=== PATIENT | female | born 1960 | race Two or more races ===

== ENCOUNTER 2023-12-19 00:31 | Inpatient (IN) | payer BC, OTHER ==
[~2023-12-19] VITALS: Ht 170.2 cm; Wt 79.4 kg
--- NOTE | 2023-12-19 00:41 | NUR ---
LUIS 80 FROM HOME FOR LLE PAIN S/P MISSED THREE STEPS REC'D 100MCG OF [place] IV KNIT GOODS PRESS HAND. Transferred to bed
--- NOTE | 2023-12-19 01:25 | NUR ---
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
[2023-12-19 01:33] LABS: BASOPHILS % (AUTO) 0.5 % (0.0-2.0); EOSINOPHILS # (AUTO) 0.1 K/uL (0.0-0.7); HEMATOCRIT 43 % (33-45); HEMOGLOBIN 14.3 g/dL (11.5-14.8); LYMPHOCYTES # (AUTO) 2.1 K/uL (0.8-4.8); LYMPHOCYTES % (AUTO) 24.5 % (20.0-44.0); MEAN CORPUSCULAR HEMOGLOBIN 31 PG (26.0-33.0); MEAN CORPUSCULAR HGB CONC 33 g/dl (31.0-36.0); MEAN CORPUSCULAR VOLUME 94 fL (82-100); MONOCYTES # (AUTO) 0.9 K/uL (0.1-1.30); MONOCYTES % (AUTO) 10.1 % (2.0-12.0); NEUTROPHILS # (AUTO) 5.6 K/uL (1.8-8.9); NEUTROPHILS % (AUTO) 63.9 % (43.0-81.0); PLATELET COUNT (AUTO) 289 K/uL (150-450); RED BLOOD CELL COUNT(AUTO) 4.63 MIL/uL (4.0-5.2); RED CELL DISTRIBUTION WIDTH 13.9 % (11.5-15.0); WHITE BLOOD COUNT (AUTO) 8.7 K/uL (4.3-11.0)
[2023-12-19 01:43] LABS: CALCIUM, SERUM 9.7 mg/dL (8.5-10.1); CREATININE 0.9 mg/dL (0.6-1.3); POTASSIUM 3.6 mmol/L (3.5-5.1)
[2023-12-19] MEDS ORDERED: ONDANSETRON HCL/PF 4 MG/2 ML VIAL ONE (01:43)
[2023-12-19] MEDS ORDERED: MORPHINE SULFATE INJ 4 MG/ML DISP.SYRIN ONE (01:43)
[2023-12-19 01:45] LABS: INR 0.98 (0.91-1.10); PARTIAL THROMBOPLASTIN TIME 23.4 SEC (24.3-34.3); PROTHROMBIN TIME 10.4 SECS (9.2-11.1)
[2023-12-19] MEDS: MORPHINE SULFATE INJ 2 MG/ML DISP.SYRIN IV ONE (01:49)
[2023-12-19] MEDS: ONDANSETRON HCL/PF 4 MG/2 ML VIAL IVP ONE (01:49)
[2023-12-19] MEDS: IV NS 0.9% 1,000 ML BAG IV ONE (01:51)
[2023-12-19] MEDS ORDERED: HYDROMORPHONE 1 MG/1 ML DISP.SYRIN ONE (02:28)
[2023-12-19] MEDS: HYDROMORPHONE 1 MG/1 ML DISP.SYRIN IV ONE (02:39)
--- NOTE | 2023-12-19 02:48 | NUR ---
Report given to YANIV ROCA
[2023-12-19] MEDS ORDERED: ONDANSETRON HCL/PF 4 MG/2 ML VIAL IVP PRN (03:00)
[2023-12-19 03:35] VITALS: BP 111/67; TEMP 98.6; O2SAT 96
--- NOTE | 2023-12-19 03:47 | NUR ---
Transported to [facility] via [facility]
[2023-12-19] MEDS: IV LR 1000 ML 1,000 ML IV SCH (03:50)
--- NOTE | 2023-12-19 03:50 | NUR ---
MS OVERHEAD CRANE TRUCK LOADER NOTES REPORT RECEIVED FROM CHANELLE MANDEL. PATIENT WAS TRANSFERRED FROM ER VIA GURNEY WITH NO SIGNS OF DISTRESS. PATIENT IS A/O X 4, SON AND FRIEND AT BEDSIDE. ON ROOM AIR, BREATHING EVEN AND UNLABORED SATURATING @ 96%. IV ACCESS LEFT ANTECUBITAL #18G ON SALINE LOCK, INTACT AND PATENT. V/S TAKEN AND RECORDED. SKIN ASSESSMENT DONE, INTACT SKIN, LEFT LOWER EXTREMITY WITH IMMOBILIZER. ALL BELONGINGS CHECKED AND SIGNED BY RYLEE YOUSSEF. WILL CARRY OUT ACTIVE MD ORDERS. PLAN OF CARE ONGOING.
--- NOTE | 2023-12-19 03:55 | NUR ---
RN NOTES- ZAID (SON) [phone]
--- NOTE | 2023-12-19 06:10 | NUR ---
MS RN CLOSING NOTES PATIENT AWAKE IN BED. A/O X 4. STABLE ON ROOM AIR. IV ACCESS LEFT ANTECUBITAL #18G WITH IV FLUID RUNNING LR @ 100 ML/HR, INFUSING WELL. PATIENT ON NPO. PATIENT'S LEFT LOWER EXTREMITY COVERED WITH GULSHAN BANDAGE WITH IMMOBILIZER. SAFETY MEASURES MAINTAINED DURING SHIFT. WILL ENDORSE TO THE NEXT NURSE ON DUTY FOR CONTINUITY OF CARE.
[2023-12-19 07:30] VITALS: BP 126/77; TEMP 97.3; O2SAT 99
[2023-12-19 07:37] LABS: PHOSPHORUS 4.3 mg/dL (2.5-4.9)
--- NOTE | 2023-12-19 07:45 | NUR ---
MS RN OPENING NOTES PATIENT AWAKE IN BED TALKING WITH DR HELTON AT BEDSIDE, A/O X 4. STABLE ON ROOM AIR. IV ACCESS LEFT ANTECUBITAL #18G WITH IV FLUID RUNNING LR @ 100 ML/HR, INFUSING WELL. MAINTAINED ON NPO AT THIS TIME. PATIENT'S LEFT LOWER EXTREMITY COVERED WITH GULSHAN BANDAGE WITH IMMOBILIZER. PAIN IS MANAGEMENT AT THIS TIME. ENCOURAGED VERBALIZATION OF NEEDS. ALL SAFETY MEASURES: BED IN THE LOWEST AND LOCKED POSITION, SIDE RAILS UP X2, CALL LIGHT AND TRAY TABLE WITHIN EASY REACH. PLAN OF CARE ONGOING.
[2023-12-19 08:17] LABS: THYROID STIMULATING HORMONE 1.19 uIU/mL (0.358-3.74)
[2023-12-19] MEDS ORDERED: PRED5TAB PO (08:35)
[2023-12-19] MEDS ORDERED: DENO60DI SQ (08:35)
[2023-12-19] MEDS ORDERED: PRED2.5T PO (08:35)
[2023-12-19] MEDS ORDERED: PITA4TAB PO (08:35)
[2023-12-19] MEDS ORDERED: FLUD0.1T PO (08:35)
[2023-12-19] MEDS ORDERED: LEVO50TA8 PO (08:35)
[2023-12-19] MEDS ORDERED: UBIQ200C PO (08:35)
[2023-12-19] MEDS ORDERED: CHOL100043 PO (08:35)
[2023-12-19] MEDS ORDERED: VALA100026 PO (08:35)
[2023-12-19] MEDS ORDERED: FAMO40TA7 PO (08:35)
[2023-12-19] MEDS: HYDROMORPHONE 1 MG/1 ML DISP.SYRIN IV PRN (08:38)
[2023-12-19] MEDS: PANTOPRAZOLE 40 MG VIAL IV SCH (08:39)
--- NOTE | 2023-12-19 08:55 | NUR ---
RN NOTES RN MIAN ADMINISTERED DILAUDID 0.5 MG IV. WITNESSED WASTING 0.5 MG.
--- NOTE | 2023-12-19 08:55 | NUR ---
CHANELLE NOTES - PATIENT COMPLAINING OF 11/30 LL EXTREMITY PAIN RADIATING TO THE ANKLE. GIVEN DILAUDID 0.5 MG IV THRU IV, WASTING 0.5 MG WITNESSED BY CHANELLE GARDUNO. Addendum: 12/19/23 at 0904 by MARIAN HIDALGO RN GIVEN AT 0838
--- NOTE | 2023-12-19 09:10 | NUR ---
RN NOTES - PATIENT REPORTS 7/10 PAIN, NOT THAT EFFECTIVE BUT PATIENT IS TOLERATING.
[2023-12-19 09:28] LABS: THYROID STIMULATING HORMONE 1.17 uIU/mL (0.358-3.74)
[2023-12-19] MEDS: FLUDROCORTISONE 0.1 MG TABLET PO SCH (09:45)
[2023-12-19] MEDS: LEVOTHYROXINE SODIUM 50 MCG TABLET PO SCH (09:45)
[2023-12-19] MEDS: HYDROCORTISONE SOD SUCCINATE 100 MG/2 ML VIAL IV SCH (09:45)
[2023-12-19] MEDS: VALACYCLOVIR HCL 500 MG TABLET PO SCH (09:46)
[2023-12-19] MEDS: ATORVASTATIN 10 MG TABLET PO SCH (09:46)
--- NOTE | 2023-12-19 09:47 | NUR ---
RN NOTES - RECEIVED ORDER FROM DR HELTON C/O CHARGE NURSE PHILLIP TO GIVE ALL MORNING MEDICATIONS INCLUDING PO.
--- NOTE | 2023-12-19 14:49 | NUR ---
RN NOTE WITNESSED WASTING DILAUDID 0.5 MG OUT OF 1 MG BY CHANELLE PAPPAS.
--- NOTE | 2023-12-19 14:57 | NUR ---
RN NOTES - PATIENT COMPLAINING OF 9/10 LL EXTREMITY PAIN. GIVEN DILAUDID 0.5 MG IV THRU IV, WASTING 0.5 MG WITNESSED BY CHANELLE HERNANDEZ.
--- NOTE | 2023-12-19 15:46 | NUR ---
RN NOTES - PATIENT WITH SON ZAID AT BEDSIDE, TALKING TO DR WATERS OVER THE PHONE.
[2023-12-19 16:00] VITALS: BP 122/65; TEMP 98.6; O2SAT 93
[2023-12-19] MEDS ORDERED: Medication Not On Formulary EA (Famotidine 40 MG) PO SCH (17:00)
[2023-12-19] MEDS ORDERED: BUPIVACAINE 0.5 % PF 150 MG/30 ML VIAL ONE (17:09)
[2023-12-19] MEDS ORDERED: VANCOMYCIN 1 GM VIAL ONE (17:09)
--- NOTE | 2023-12-19 17:33 | NUR ---
RN NOTES - PATIENT IS TAKEN TO OR VIA HER BED.
[2023-12-19] MEDS ORDERED: methylPREDNISolone SOD SUCC 125 MG/2ML VIAL ONE (17:37)
[2023-12-19] MEDS ORDERED: FENTANYL PF 100MCG/2ML AMPUL ONE (17:37)
--- NOTE | 2023-12-19 19:38 | NUR ---
MS RN CLOSING NOTES PATIENT REMAINS IN SURGERY. ENDORSED TO NIGHT RN FOR RUCHI.
--- NOTE | 2023-12-19 19:51 | NUR ---
MS RN NOTES REPORT RECEIVED FROM CHANELLE PAPPAS. PATIENT IS STILL IN THE OR FOR SURGERY.
[2023-12-19 20:36] VITALS: BP 114/69; TEMP 98.4; O2SAT 98
[2023-12-19 21:00] VITALS: BP 114/69; TEMP 98.4; O2SAT 98
--- NOTE | 2023-12-19 21:00 | NUR ---
RN NOTE RECEIVED PATIENT FROM SURGERY S/P LEFT TIBIA IM RODDING. PT IS AWAKE. ON ROOM AIR, BREATHING EVENLY AND UNLABORED. IV ACCESS ON LAC G#18, INTACT AND PATENT. WITH WHITESIDE CATHETER DRAINING VIA GRAVITY. VS FOLLOWS: BP 114/69, HR 77, RR 12, SPO2 98% TEMP 98.4. SAFETY MEASURES IN PLACE, WILL CONTINUE TO MONITOR
[2023-12-19] MEDS: IV D5/0.45 NACL W/20 MEQ KCL 1L IV SCH (21:09)
[2023-12-20] MEDS: ANCEF 1 GM/50 ML D5W IV SCH (01:12)
--- NOTE | 2023-12-20 06:43 | NUR ---
MS RN CLOSING NOTE PATIENT ASLEEP IN BED. EASILY AROUSED WITH VERBAL STIMULI. A/OX4. ON 2L O2 VIA NC, TOLERATING WELL. BREATHING EVENLY AND UNLABORED. ON ROOM AIR, BREATHING EVENLY AND UNLABORED. IV ACCESS ON LAC G#18, INTACT, PATENT WITH RUNNING D51/2 NS +KCL 20 mEq @ 75 ML/HR. WITH LEFT LEG DRESSING C/DI. WITH WHITESIDE CATHETER DRAINING VIA GRAVITY. SAFETY MEASURES MAINTAINED. WILL ENDORSE TO AM SHIFT NURSE.
[2023-12-20 07:06] LABS: HEMATOCRIT 36 % (33-45); HEMOGLOBIN 11.5 g/dL (11.5-14.8); LYMPHOCYTES # (AUTO) 0.9 K/uL (0.8-4.8); LYMPHOCYTES % (AUTO) 7.9 % (20.0-44.0); MEAN CORPUSCULAR HEMOGLOBIN 30 PG (26.0-33.0); MEAN CORPUSCULAR HGB CONC 32 g/dl (31.0-36.0); MEAN CORPUSCULAR VOLUME 93 fL (82-100); MONOCYTES # (AUTO) 0.7 K/uL (0.1-1.30); MONOCYTES % (AUTO) 6.1 % (2.0-12.0); NEUTROPHILS # (AUTO) 9.7 K/uL (1.8-8.9); PLATELET COUNT (AUTO) 260 K/uL (150-450); RED BLOOD CELL COUNT(AUTO) 3.84 MIL/uL (4.0-5.2); RED CELL DISTRIBUTION WIDTH 13.8 % (11.5-15.0); WHITE BLOOD COUNT (AUTO) 11.3 K/uL (4.3-11.0)
[2023-12-20 07:42] LABS: CALCIUM, SERUM 7.5 mg/dL (8.5-10.1); CREATININE 0.6 mg/dL (0.6-1.3)
--- NOTE | 2023-12-20 07:45 | NUR ---
MS RN OPENING NOTE RECEIVED PATIENT SLEEPING IN BED, EASILY AWAKEN WITH AUDITORY STIMULI. A/OX4. ON 2L O2 VIA NC, TOLERATING WELL. BREATHING EVENLY AND UNLABORED. IV ACCESS ON LAC G#18, INTACT, PATENT WITH RUNNING D51/2 NS +KCL 20 mEq @ 75 ML/HR. S/P L TIBIA WITH IM RODDING WITH LEFT LEG DRESSING C/DI. PAIN IS TOLERABLE AT THIS TIME. WITH WHITESIDE CATHETER DRAINING VIA GRAVITY. ALL SAFETY MEASURES IN PLACE: BED IN THE LOWEST AND LOCKED POSITION, SIDE RAILS UP X3, CALL LIGHT AND TRAY TABLE WITHIN EASY REACH. PLAN OF CARE ONGOING.
[2023-12-20 08:00] VITALS: BP 110/64; TEMP 98.1; O2SAT 97
[2023-12-20] MEDS ORDERED: Medication Not On Formulary EA (Ubiquinol (Active-Q) 200 MG) PO SCH (09:00)
[2023-12-20] MEDS: HYDROCORTISONE SOD SUCCINATE 100 MG/2 ML VIAL IV SCH (09:00)
--- NOTE | 2023-12-20 10:01 | NUR ---
RN NOTES - SOLUMEDROL BEING TAPERED DOWN - 100 MG BID TODAY THEN 100 MG IV TOMORROW AM LAST DOSE PER DR GONSALVES.
--- NOTE | 2023-12-20 10:42 | NUR ---
RN NOTES - MRSA COLLECTED,SENT TO [facility]. LAB AWARE
[2023-12-20] MEDS: HYDROCODONE/APAP 10/325MG TABLET PO PRN (13:32)
--- NOTE | 2023-12-20 13:42 | NUR ---
RN NOTES - PATIENT COMPLAINING OF 8/10 LEFT LEG PAIN, DULL, VITAL SIGNS WNL. STABLE ON ROOM AIR THIS TIME AT 97%, GIVEN NORCO 10/325 MG 1 TAB ORDERED. ONGOING MONITORING.
[2023-12-20] MEDS: MORPHINE SULFATE INJ 4 MG/ML DISP.SYRIN IV PRN (15:35)
--- NOTE | 2023-12-20 15:35 | NUR ---
RN NOTES - PT C/O 01/30 LEFT LEG PAIN AFTER PT EVAL, GIVEN MORPHINE 4 MG IV ORDERED. WILL CONTINUE TO MONITOR.
[2023-12-20 16:00] VITALS: BP 108/62; TEMP 99.1; O2SAT 99
--- NOTE | 2023-12-20 19:20 | NUR ---
MS RN OPENING NOTE RECEIVED PATIENT AWAKE IN BED. A/OX4. ON ROOM AIR, BREATHING EVENLY AND UNLABORED. IV ACCESS ON LAC G#18, INTACT, PATENT WITH RUNNING D51/2 NS +KCL 20 mEq @ 75 ML/HR. NO C/O PAIN AT THIS TIME. WITH LEFT LEG DRESSING AND C/D/I. WITH WHITESIDE CATHETER DRAINING VIA GRAVITY. SAFETY MEASURES IN PLACE: BED IN LOW AND LOCKED POSITION, SIDE RAILS UP X 2, CALL LIGHT WITHIN REACH. WILL CONTINUE TO MONITOR.
[2023-12-20 20:00] VITALS: BP 114/67; TEMP 97.9; O2SAT 96
[2023-12-20 20:35] VITALS: BP 114/67; TEMP 97.9; O2SAT 96
[2023-12-20 20:48] VITALS: BP 114/67; TEMP 97.9; O2SAT 96
--- NOTE | 2023-12-20 23:17 | NUR ---
RN NOTE PT C/O LEFT LEG PAIN ON THE SURGERY SITE 10/30. GIVEN PRN NORCO 10-325 MG 1 TAB PO.
--- NOTE | 2023-12-21 05:23 | NUR ---
RN NOTE PT C/O SEVERE PAIN ON POST OPERATIVE SITE 01/30, GIVEN PRN MORPHINE 4 MG IV. WILL MONITOR
--- NOTE | 2023-12-21 06:37 | NUR ---
MS RN CLOSING NOTE PATIENT ASLEEP IN BED EASILY AROUSED WITH VERBAL STIMULI. A/OX4. ON ROOM AIR, BREATHING EVENLY AND UNLABORED. IV ACCESS ON LAC G#18, INTACT, PATENT WITH RUNNING D51/2 NS +KCL 20 mEq @ 75 ML/HR. WITH LEFT LEG DRESSING AND BANDAGE C/D/I. WITH WHITESIDE CATHETER DRAINING TO GRAVITY. ALL NEEDS ATTENDED TO. SAFETY MEASURES MAINTAINED: BED IN LOW AND LOCKED POSITION, SIDE RAILS UP X 2, CALL LIGHT WITHIN REACH. WILL ENDORSE TO AM SHIFT NURSE.
[2023-12-21 06:45] LABS: BASOPHILS % (AUTO) 0.3 % (0.0-2.0); EOSINOPHILS % (AUTO) 0.3 % (0.0-6.0); HEMATOCRIT 32 % (33-45); HEMOGLOBIN 10.6 g/dL (11.5-14.8); LYMPHOCYTES # (AUTO) 2.4 K/uL (0.8-4.8); LYMPHOCYTES % (AUTO) 24.6 % (20.0-44.0); MEAN CORPUSCULAR HEMOGLOBIN 31 PG (26.0-33.0); MEAN CORPUSCULAR HGB CONC 33 g/dl (31.0-36.0); MEAN CORPUSCULAR VOLUME 94 fL (82-100); MONOCYTES # (AUTO) 1.2 K/uL (0.1-1.30); MONOCYTES % (AUTO) 12.2 % (2.0-12.0); NEUTROPHILS # (AUTO) 6.1 K/uL (1.8-8.9); NEUTROPHILS % (AUTO) 62.6 % (43.0-81.0); PLATELET COUNT (AUTO) 225 K/uL (150-450); RED BLOOD CELL COUNT(AUTO) 3.44 MIL/uL (4.0-5.2); RED CELL DISTRIBUTION WIDTH 13.7 % (11.5-15.0); WHITE BLOOD COUNT (AUTO) 9.7 K/uL (4.3-11.0)
--- NOTE | 2023-12-21 07:33 | NUR ---
MS RN OPENING NOTE- 326/2 RECEIVED PATIENT AWAKE IN BED, A/OX4. APPEARS COMFORTABLE. ON ROOM AIR, BREATHING EVENLY AND UNLABORED. DENIES ANY S/SX OF / SOB NOTES. DENIED ANY PAIN OR DISCOMFORT. PATIENT HAS AN IV ACCESS ON LAC G#18, INTACT, PATENT WITH RUNNING D51/2 NS +KCL 20 mEq @ 75 ML/HR. NO S/SX OF INFILTRATION NOTED. NO BLEEDING NOTED. SKIN ASSESSMENT DONE, WITH LEFT LEG DRESSING AND BANDAGE C/D/I. PATIENT HAS ALSO WHITESIDE CATHETER DRAINING TO GRAVITY. ABLE TO MAKE NEEDS KNOWN. PATIENT EXPRESSES NO NEEDS OF THIS MOMENT. ALL SAFETY MEASURES MAINTAINED: BED IN LOW AND LOCKED POSITION, SIDE RAILS UP X 2, CALL LIGHT WITHIN REACH. PLAN OF CARE ONGOING.
[2023-12-21 07:39] LABS: CALCIUM, SERUM 7.8 mg/dL (8.5-10.1); CREATININE 0.7 mg/dL (0.6-1.3); POTASSIUM 3.8 mmol/L (3.5-5.1)
[2023-12-21] MEDS: PANTOPRAZOLE 40 MG TABLET.DR PO SCH (07:43)
[2023-12-21] MEDS: HYDROCORTISONE SOD SUCCINATE 100 MG/2 ML VIAL IV SCH (08:11)
[2023-12-21 08:33] VITALS: BP 106/68; TEMP 98.4; O2SAT 98
--- NOTE | 2023-12-21 10:09 | NUR ---
RN NOTES PATIENT VERBALIZED SHE FEELS WEIRD SHE FEELS TIRED AND SLEEPY. TOOK LATEST VITAL SIGNS FOLLOWS: BP 120/70, P 83, R18, T 98.4, O2 SAT 97%. INFORMED DR MAJOR GALLEGOS. NO NEW ORDERS RECEIVED. CHARGE NURSE PHILLIP AWARE TOO. WILL CONTINUE TO MONITOR.
--- NOTE | 2023-12-21 10:42 | NUR ---
RN NOTES PATIENT COMPLAINED OF LEG PAIN. SHE RATED 6-7/10 ON PAIN SCALE. REQUESTED HER PAIN MEDICATION. PRN NORCO WAS GIVEN. WILL CONTINUE TO MONITOR.
--- NOTE | 2023-12-21 12:04 | NUR ---
RN NOTES PATIENT IS REFUSING HER NEW BAG OF D5 1/2 NS WITH POTASSIUM 20MEQ. SHE SAYS THAT'S WHAT MAKES HER FEEL WEAK, TIRED AND SLEEPY. INFORMED DOCTOR MAJOR GALLEGOS. RECEIVED ORDER TO INFORM NEPHRO, DR DEZ DAVIDSON. ORDER CARRIED OUT. AWAITING NEW ORDER FROM DR GARCES. WILL CONTINUE TO MONITOR.
--- NOTE | 2023-12-21 14:45 | NUR ---
RN NOTES PATIENT COMPLAINED OF LEG PAIN. SHE RATED 7/10 ON PAIN SCALE. REQUESTED HER PAIN MEDICATION. PRN NORCO WAS GIVEN. WILL CONTINUE TO MONITOR.
--- NOTE | 2023-12-21 15:25 | NUR ---
RN NOTES PATIENT REFUSED BED LINEN CHANGE. SON AWARE TOO.
[2023-12-21 16:14] VITALS: BP 112/64; TEMP 98.6; O2SAT 95
[2023-12-21] MEDS: DOCUSATE SODIUM 100 MG CAPSULE PO SCH (18:34)
[2023-12-21] MEDS: POLYETHYLENE GLYCOL 3350 17 GM POWD.PACK PO SCH (18:34)
--- NOTE | 2023-12-21 18:58 | NUR ---
MS RN CLOSING NOTE- 326/2 PATIENT AWAKE IN BED, WITH SON AT BEDSIDE. A/OX4. APPEARS COMFORTABLE. ON ROOM AIR, BREATHING EVENLY AND UNLABORED. DENIES ANY S/SX OF / SOB NOTES. DENIED ANY PAIN OR DISCOMFORT. PATIENT HAS AN IV ACCESS ON LAC G#18, SL. NO S/SX OF INFILTRATION NOTED. NO BLEEDING NOTED. REFUSED NEW BAG OF D5 1/[address] GONSALVES AND DR GARCES, NO NEW ORDERS RECEIVED. CHARGE NURSE AWARE TOO. WITH LEFT LEG DRESSING AND BANDAGE C/D/I. PATIENT HAS ALSO WHITESIDE CATHETER DRAINING TO GRAVITY. ALL DUE MEDS GIVEN. KEPT PATIENT CLEAN, DRY AND COMFORTABLE. ABLE TO MAKE NEEDS KNOWN. PATIENT EXPRESSES NO NEEDS OF THIS MOMENT. ALL SAFETY MEASURES MAINTAINED: BED IN LOW AND LOCKED POSITION, SIDE RAILS UP X 2, CALL LIGHT WITHIN REACH. WILL ENDORSE TO FINANCIAL SERVICE PROFESSIONAL NURSE FOR RUCHI.
--- NOTE | 2023-12-21 19:10 | NUR ---
MS RN OPENING NOTES RECEIVED PATIENT AWAKE IN BED, USING HER PHONE, SON AT BEDSIDE. A/O X 4. ON ROOM AIR, BREATHING EVEN AND UNLABORED, SATURATING @ 95%. IV ACCESS LEFT ANTECUBITAL #18G ON SALINE LOCK, INTACT, PATENT AND FLUSHING WELL. NOTED ON LOWER LEFT EXTREMITY DRESSING, S/P LEFT TIBIA IM NAILING AND ORIF. SAFETY MEASURES IN PLACE WITH BED IN LOWEST LOCKED POSITION, SIDE RAILS UP X 2, CALL LIGHT AND TRAY WITHIN EASY REACH. PLAN OF CARE ONGOING.
[2023-12-21 20:00] VITALS: BP 128/75; TEMP 99.1; O2SAT 95
--- NOTE | 2023-12-21 20:10 | NUR ---
RN NOTES- PATIENT VERBALIZED THAT SHE IS NOT FEELING WELL LIKE "CRASHING" AND NOT READY TO TAPER DOWN STEROIDS. EXPLAINED TO THE PATIENT THAT SHE HAS A SCHEDULED MEDICATION FOR TOMORROW MORNING WHICH IS PREDNISONE 7.5 MG AND SOLU CORTEF 100 MG. SHE ALSO HAD A SOLO CORTEF 100MG THIS MORNING. PATIENT IS REQUESTING FOR STEROIDS TO BE GIVEN TO HER. INFORMED DR. GONSALVES AND ORDERED SOLU CORTEF 100MG IV FOR ONE TIME DOSE TONIGHT. PATIENT DID NOT TAKE THE WHOLE DOSE OF 100MG, INSTEAD SHE JUST TOOK SOLU CORTEF 50MG. V/S TAKEN AND RECORDED. BP: 128/75 HR: 74. PLAN OF CARE ONGOING.
[2023-12-21] MEDS: HYDROCORTISONE SOD SUCCINATE 100 MG/2 ML VIAL IV ONE (20:32)
--- NOTE | 2023-12-21 21:22 | NUR ---
RN NOTES- PATIENT C/O OF LEFT LEG PAIN WITH PAIN LEVEL OF 7/10. NORCO GIVEN PRN FOR PAIN. DENIES ANY ACUTE DISTRESS AT THIS TIME. PLAN OF CARE ONGOING.
--- NOTE | 2023-12-21 23:10 | NUR ---
RN NOTES- PATIENT REQUESTED HER IV FLUID BACK. CALLED [facility] TO UPDATE THE SCHEDULED TIME. PLAN OF CARE ONGOING.
--- NOTE | 2023-12-21 23:15 | NUR ---
RN NOTES- PATIENT CLAIMED THAT THE ADDITIONAL SOLU CORTEF 50 MG MADE HER FEEL BETTER. PLAN OF CARE ONGOING.
[2023-12-21] MEDS: IV D5/0.45 NACL W/20 MEQ KCL 1L IV SCH (23:17)
[2023-12-22 06:35] LABS: BASOPHILS % (AUTO) 0.3 % (0.0-2.0); EOSINOPHILS % (AUTO) 0.3 % (0.0-6.0); HEMATOCRIT 32 % (33-45); LYMPHOCYTES # (AUTO) 2.4 K/uL (0.8-4.8); LYMPHOCYTES % (AUTO) 25.3 % (20.0-44.0); MEAN CORPUSCULAR HEMOGLOBIN 32 PG (26.0-33.0); MEAN CORPUSCULAR HGB CONC 34 g/dl (31.0-36.0); MEAN CORPUSCULAR VOLUME 92 fL (82-100); MONOCYTES # (AUTO) 0.9 K/uL (0.1-1.30); MONOCYTES % (AUTO) 8.9 % (2.0-12.0); NEUTROPHILS # (AUTO) 6.3 K/uL (1.8-8.9); NEUTROPHILS % (AUTO) 65.2 % (43.0-81.0); PLATELET COUNT (AUTO) 230 K/uL (150-450); RED BLOOD CELL COUNT(AUTO) 3.47 MIL/uL (4.0-5.2); RED CELL DISTRIBUTION WIDTH 13.8 % (11.5-15.0); WHITE BLOOD COUNT (AUTO) 9.6 K/uL (4.3-11.0)
--- NOTE | 2023-12-22 06:38 | NUR ---
MS RN CLOSING NOTES PATIENT SLEEPING IN BED, EASILY AWAKEN BY VERBAL STIMULI. A/O X 4. STABLE ON ROOM AIR. IV ACCESS LEFT ANTECUBITAL #18G ON IV FLUID POTASSIUM CHLORIDE 20 MEQS D5W 1/2NS @ 75 ML/HR, INFUSING WELL. ON WHITESIDE CATHETER DRAINED 2600CC OF YELLOW COLORED URINE. ALL NEEDS ATTENDED. SAFETY MEASURES MAINTAINED DURING SHIFT. WILL ENDORSE TO THE NEXT NURSE ON DUTY FOR CONTINUITY OF CARE.
[2023-12-22 06:55] LABS: CALCIUM, SERUM 8.4 mg/dL (8.5-10.1); CREATININE 0.6 mg/dL (0.6-1.3); POTASSIUM 3.7 mmol/L (3.5-5.1)
[2023-12-22 08:00] VITALS: BP 107/62; TEMP 98.1; O2SAT 96
[2023-12-22] MEDS ORDERED: predniSONE 5 MG TABLET PO SCH ×2 (09:00→09:22)
[2023-12-22] MEDS: predniSONE 5 MG TABLET PO SCH (09:26)
--- NOTE | 2023-12-22 09:40 | NUR ---
RN NOTE PREVIOUS ORDER FOR PREDNISONE WAS 7.5MG. SO PULLED OUT 2 5MG VERIFIED TO PHARMACY AND THEY CHANGED TO 5MG IN THE MORNING AND 2.5MG IN THE EVENING. RN PULLED OUT 2 5MG. ADVISED BY THE PHARMACY TO RETURN THE OTHER 5MG. RETURNED. 5MG PREDNISONE GIVEN TO PATIENT. WILL CONTINUE TO MONITOR,
--- NOTE | 2023-12-22 09:45 | NUR ---
RN NOTES DR HELTON AT BEDSIDE
--- NOTE | 2023-12-22 10:51 | NUR ---
RN NOTES DR GONSALVES AT BEDSIDE
[2023-12-22] MEDS: predniSONE 20 MG TABLET PO ONE (10:58)
--- NOTE | 2023-12-22 11:42 | NUR ---
RN NOTES WHITESIDE CATHETER REMOVED. DRAINED 1650CC OF YELLOW COLORED URINE.
--- NOTE | 2023-12-22 15:01 | NUR ---
RN NOTES PATIENT COMPLAINED OF LEG PAIN. SHE RATED IT 7/10. SHE REQUESTED HER PAIN MEDICATION. PRN NORCO WAS GIVEN. WILL CONTINUE TO MONITOR.
[2023-12-22 16:00] VITALS: BP 120/75; TEMP 98.2; O2SAT 97
[2023-12-22] MEDS: predniSONE 20 MG TABLET PO SCH (16:56)
--- NOTE | 2023-12-22 19:12 | NUR ---
MS RN CLOSING NOTE- 326/2 PATIENT AWAKE IN BED, A/OX4. APPEARS COMFORTABLE. ON ROOM AIR, BREATHING EVENLY AND UNLABORED. DENIES ANY S/SX OF / SOB NOTES. DENIED ANY PAIN OR DISCOMFORT. PATIENT HAS AN IV ACCESS ON LAC G#18, INTACT, PATENT WITH RUNNING D51/2 NS +KCL 20 mEq @ 75 ML/HR. NO S/SX OF INFILTRATION NOTED. NO BLEEDING NOTED, WITH LEFT LEG DRESSING AND BANDAGE C/D/I. USES BEDPAN. ALL DUE MEDS GIVEN. ABLE TO MAKE NEEDS KNOWN. ALL NEEDS MET. PATIENT EXPRESSES NO NEEDS OF THIS MOMENT. ALL SAFETY MEASURES MAINTAINED: BED IN LOW AND LOCKED POSITION, SIDE RAILS UP X 2, CALL LIGHT WITHIN REACH. WILL ENDORSE TO PAINTING DEPARTMENT SUPERVISOR NURSE FOR RUCHI.
--- NOTE | 2023-12-22 19:15 | NUR ---
MS RN OPENING NOTE RECEIVED PATIENT AWAKE IN BED, WITH FAMILY AT BEDSIDE. A/OX4, APPEARS COMFORTABLE, ABLE TO MAKE NEEDS KNOWN. STABLE ON ROOM AIR, RESPIRATIONS REGULAR IN RATE AND RHYTHM, NONLABORED. DENIES PAIN AT THIS TIME. IV ACCESS ON LAC G#18, INTACT, PATENT, INFUSING WELL WITH D51/2 NS +KCL 20 mEq @ 75 ML/HR. WITH LLE SX DRESSING C/D/I, LEFT LEG ELEVATED ON A PILLOW. SAFETY MEASURES MAINTAINED: BED IN LOW AND LOCKED POSITION, SIDE RAILS UP X 2, CALL LIGHT AND TABLE WITHIN REACH. ONGOING PLAN OF CARE.
[2023-12-22 20:00] VITALS: BP 129/72; TEMP 98.4; O2SAT 95
[2023-12-22 20:09] VITALS: BP 129/72; TEMP 98.4; O2SAT 95
--- NOTE | 2023-12-22 21:53 | NUR ---
RN NOTE PATIENT COMPLAINED OF LLE PAIN, 7/10 PER SCALE. VS CHECKED PRIOR TO PAIN MED ADMINISTRATION FF: TEMP 97.8, RR 21, HR 78, BP 126/68. WITNESSED CHANELLE DAN PULL OUT NORCO 10-325 1 TAB FROM [employer], AND ADMINISTERED TO PATIENT, I AM CURRENTLY LOCKED OUT. PLAN OF CARE ONGOING.
--- NOTE | 2023-12-22 21:54 | NUR ---
RN NOTES PULL OUT MEDICATION FROM OMN[facility]LL RN BON CURRENTLY UNABLE TO HAVE AN ACCESS. NORCO 10-325 1 TAB PO Q4PRN GIVEN ORDERED PT COMPLAINTS OF PAIN 7/10 IN LEFT LOWER EXTREMITY. WILL REASSESS IN 1 HOUR.
--- NOTE | 2023-12-23 06:41 | NUR ---
MS RN CLOSING NOTE PATIENT AWAKE IN BED, A/OX4, ABLE TO MAKE NEEDS KNOWN. STABLE ON ROOM AIR, RESPIRATIONS REGULAR IN RATE AND RHYTHM, NONLABORED. IV ACCESS ON LAC G#18, INTACT, PATENT, INFUSING WELL WITH D51/2 NS +KCL 20 mEq @ 75 ML/HR. WITH LLE SX DRESSING C/D/I, LEFT LEG ELEVATED ON A PILLOW. PURE WICK IN PLACE, DRAINING TO CLEAR, LIGHT YELLOW URINE OUTPUT, ATTACHED TO WALL SUCTION. DUE MEDS GIVEN, NEEDS ATTENDED. SAFETY MEASURES MAINTAINED: BED IN LOW AND LOCKED POSITION, RAILS UP X 2, CALL LIGHT AND TABLE WITHIN REACH. ENDORSED TO AM SHIFT FOR RUCHI.
--- NOTE | 2023-12-23 07:10 | NUR ---
MS RN OPENING NOTE RECEIVED PATIENT AWAKE IN BED, A/OX4. ABLE TO MAKE NEEDS KNOWN. NO SIGNS OF ACUTE DISTRESS NOTED. ON ROOM AIR, TOLERATING WELL. NO SOB, BREATHING EVEN AND UNLABORED. NOTED WITH IV ACCESS ON LEFT ANTECUBITAL #18G-INFUSING WELL WITH D51/2 NS +KCL 20 mEq @ 75 ML/HR-INTACT AND PATENT. NOTED WITH LLE SX DRESSING C/D/I-LEFT LEG ELEVATED ON A PILLOW. WITH PURE WICK IN PLACE DRAINING CLEAR YELLOW COLORED URINE VIA WALL SUCTION. PATIENT DENIES PAIN AT THIS TIME. SAFETY MEASURES IN PLACE. BED IN LOW AND LOCKED POSITION. CALL LIGHT AND TABLE WITHIN EASY REACH. SIDE RAILS UP X2. WILL CONTINUE WITH PLAN OF CARE.
[2023-12-23 07:30] VITALS: BP 123/68; TEMP 97.9; O2SAT 96
--- NOTE | 2023-12-23 09:02 | NUR ---
RN NOTES PATIENT ASKED FOR PAIN MEDICATION PRIOR TO PHYSICAL THERAPY SESSION. NORCO 10-325 TAB GIVEN PRN PAIN MEDICATION.
[2023-12-23 16:00] VITALS: BP 123/76; TEMP 97.9; O2SAT 96
--- NOTE | 2023-12-23 16:40 | NUR ---
RN NOTE GAVE SCHEDULED PREDNISONE 10MG TO THE PATIENT BUT PATIENT HELD THE PILL CUTTER AND CUT THE MEDICATION IN HALF. PATIENT STATED "MY BODY IS READY FOR 5MG SO I WILL CUT THIS ONE". EXPLAINED TO THE PATIENT THAT TAPERING DOWN TO 5MG FROM 10 MG WILL START ON 12/24 BUT PATIENT STATED 'I KNOW MY BOD WELL MORE THAN YOU DO, I WILL TAKE THE 5MG". MD MADE AWARE OF THE SITUATION.
--- NOTE | 2023-12-23 18:51 | NUR ---
MS RN CLOSING NOTES PATIENT AWAKE IN BED, A/OX4. WITH SON AT BEDSIDE. WAS ABLE TO MAKE NEEDS KNOWN. NO SIGNS OF ACUTE DISTRESS NOTED. ON ROOM AIR, TOLERATING WELL. NO SOB, BREATHING EVEN AND UNLABORED. NOTED WITH IV ACCESS ON LEFT ANTECUBITAL #18G-INFUSING WELL WITH D51/2 NS +KCL 20 mEq @ 75 ML/HR-INTACT AND PATENT. NOTED WITH LLE SX DRESSING C/D/I-LEFT LEG ELEVATED ON A PILLOW. WITH PURE WICK IN PLACE DRAINING CLEAR YELLOW COLORED URINE VIA WALL SUCTION(OUTPUT:3000CC).DUE MEDS GIVEN. NURSING CARE RENDERED. SAFETY MEASURES IMPLEMENTED. BED IN LOW AND LOCKED POSITION. CALL LIGHT AND TABLE WITHIN EASY REACH. SIDE RAILS UP X2. WILL ENDORSE TO RUG WASHER NURSE FOR CONTINUITY OF CARE.
--- NOTE | 2023-12-23 19:30 | NUR ---
MS RN OPENING NOTES RECEIVED PATIENT AWAKE IN BED, SON AT BEDSIDE. A/O X 4. ON ROOM AIR, BREATHING EVEN AND UNLABORED, SATURATING @ 96%. IV ACCESS LEFT ANTECUBITAL #18G WITH IV FLUID RUNNING KCL 20 MEQS IN D5 1/2 NS @ 75 ML/HR, INFUSING WELL. SAFETY MEASURES IN PLACE WITH BED IN LOWEST LOCKED POSITION, SIDE RAILS UP X 2, CALL LIGHT AND TRAY WITHIN EASY REACH. PLAN OF CARE ONGOING.
[2023-12-23 20:00] VITALS: BP 155/85; TEMP 99; O2SAT 99
--- NOTE | 2023-12-23 21:54 | NUR ---
RN NOTES- PATIENT REFUSED MIRALAX. SHE SAID THAT SHE WILL JUST TAKE THE MEDICATION IN THE MORNING. RE-CHECKED BP: 124/82 HR:70. DENIES ANY ACUTE DISTRESS AT THIS TIME. PLAN OF CARE ONGOING.
[2023-12-23 21:55] VITALS: BP 124/82
--- NOTE | 2023-12-24 03:40 | NUR ---
CHANELLE NOTES- PATIENT C/O OF LEFT LEG PAIN WITH PAIN LEVEL OF 7/10. KAYE GIVEN PRN FOR PAIN. DENIES ANY ACUTE DISTRESS AT THIS TIME. PLAN OF CARE ONGOING. Addendum: 12/24/23 at 0731 by ROGER EDEN RN WRONG PATIENT Addendum: 12/24/23 at 0732 by ROGER EDEN RN CORRECT PATIENTJamil NELSON.
--- NOTE | 2023-12-24 07:25 | NUR ---
MS RN CLOSING NOTES PATIENT AWAKE IN BED. A/O X 4. ON ROOM AIR, BREATHING EVEN AND UNLABORED, SATURATING @ 96%. IV ACCESS LEFT ANTECUBITAL #18G WITH IV FLUID RUNNING KCL 20 MEQS IN D5 1/2 NS @ 75 ML/HR, INFUSING WELL. ALL NEEDS ATTENDED. PATIENT HAS PUREWICK WITH URINE OUTPUT OF 2,200CC OF CLEAR YELLOW URINE OUTPUT, NO BOWEL MOVEMENT DURING SHIFT. SAFETY MEASURES MAINTAINED DURING SHIFT. WILL ENDORSE TO THE NEXT NURSE ON DUTY FOR CONTINUITY OF CARE.
[2023-12-24] MEDS ORDERED: HYDR-3980 PO (07:41)
[2023-12-24 08:22] VITALS: BP 109/60; TEMP 98.6; O2SAT 98
[2023-12-24] MEDS: LACTULOSE 10 G/15 ML UDC (PYXIS) PO SCH (08:40)
[2023-12-24 16:22] VITALS: BP 120/68; TEMP 98.4; O2SAT 96
--- NOTE | 2023-12-24 19:00 | NUR ---
MS RN OPENING NOTES; 326-2 RECEIVED PATIENT FOR CONTINUITY OF CARE AWAKE ON BED IN SEMI-FOWLERS POSITION WITH FEMALE VISITOR BESIDE HER. A/O X 4, ABLE TO VERBALIZED NEEDS. ON ROOM AIR, BREATHES EVENLY AND UNLABORED. NO SOB/ NOR S/SX OF ACUTE DISTRESS NOTED AT THIS TIME. IV ACCESS LAC #18G, INTACT AND PATENT.NO COMPLAINTS OF PAIN/DISCOMFORT AT THE MOMENT. NOTED ON PUREWICK DRAINING CLEAR YELLOW URINE. MAINTAIN ALL SAFETY MEASURES IN PLACE; BED IN LOW AND LOCKED POSITION, BED ALARM ON, SIDE RAILS UP X2, CALL LIGHT AND TABLE TRAY WITHIN REACH. PLAN OF CARE ONGOING..
[2023-12-24 20:00] VITALS: BP 134/84; TEMP 98.4; O2SAT 94
--- NOTE | 2023-12-24 21:15 | NUR ---
RN NOTE; PATIENT REQUESTED NOT TO BE DISTURB NOT UNTIL NEXT MEDICATION TO BE GIVEN TOMORROW EARLY IN THE MORNING. EVEN ASK TO CLOSE THE DOOR FOR HER NOT TO HEAR THE NOISE OF SHOUTING PATIENT.
--- NOTE | 2023-12-25 06:47 | NUR ---
MS RN CLOSING NOTES; 326-2 LEFT PATIENT RESTING ON BED ASLEEP BUT EASILY AWAKE BY STIMULI. A/O X 4, ABLE TO MAKE NEEDS KNOWN. STABLE THROUGHOUT SHIFT ON RA TOLERATING WELL @ 94% SPO2, BREATHES EVENLY AND UNLABORED. NO SOB/ NOR S/SX OF ACUTE DISTRESS NOTED AT THIS TIME. IV ACCESS LAC #18G, INTACT, PATENT AND INFUSING WELL WITH KCL 20MEQS ON D5 1/2 NS @ 75ML/HR.NO COMPLAINTS OF PAIN/DISCOMFORT AT THE MOMENT. ON PUREWICK DRAINING 2400 ML. OF CLEAR YELLOW URINE. ALL NURSING CARE AND NEEDS ANTICIPATED AND MET, ALL DUE MEDS GIVEN ORDERED. KEPT PATIENT CLEAN, WARM AND COMFORTABLE. MAINTAIN ALL SAFETY MEASURES IN PLACE; BED IN LOW AND LOCKED POSITION, BED ALARM ON, SIDE RAILS UP X2, CALL LIGHT AND TABLE TRAY WITHIN REACH. PLAN OF CARE ONGOING, ENDORSE TO AM SHIFT NURSE FOR RUCHI.
[2023-12-25 08:00] VITALS: BP 120/67; TEMP 97.9; O2SAT 98
[2023-12-25] MEDS: predniSONE 5 MG TABLET PO SCH ×2 (08:29→18:24)
[2023-12-25] MEDS ORDERED: NA PHOS,M-B/NA PHOS,DI-BA 1 EA ENEMA RC PRN (10:00)
[2023-12-25] MEDS: MAGNESIUM HYDROXIDE 30 ML UDC PO SCH (10:54)
[2023-12-25 16:00] VITALS: BP 120/88; TEMP 98.6; O2SAT 98
--- NOTE | 2023-12-25 20:16 | NUR ---
OPERATIONS STAFF SPECIALIST SECURITY NOTES PATIENT DISCHARGE IN STABLE MEDICAL CONDITION/ A/O X 4. NO IV ACCESS. NAME ARM BAND REMOVED. PATIENT LEFT UNIT VIA GURNEY WITH NO SIGNS OF DISTRESS, ACCOMPANIED BY 3 EMT'S. CHARGE NURSE AWARE.
[2023-12-25 20:40] VITALS: BP 117/78; TEMP 98.6; O2SAT 95
[2023-12-27] MEDS ORDERED: predniSONE 5 MG TABLET PO SCH (09:00)
[2023-12-29] MEDS ORDERED: predniSONE 5 MG TABLET PO SCH ×2 (09:00→18:00)
== END 2023-12-25 20:20 | DRG 493 ==
LOC: ER 00:33 → MED 02:37
PROVIDERS: ADMIT Internal Medicine; ATTEND Internal Medicine
PROC: 0QSH06Z Reposition Left Tibia with Intramedullary Internal Fixation Device, Open Approach (ICD-10-PCS; principal; 2023-12-19)
PROC: 0QSK04Z Reposition Left Fibula with Internal Fixation Device, Open Approach (ICD-10-PCS; 2023-12-19)
DX: S82.242A Displaced spiral fracture of shaft of left tibia, initial encounter for closed fracture (principal); E27.1 Primary adrenocortical insufficiency; E78.5 Hyperlipidemia, unspecified; W10.9XXA Fall (on) (from) unspecified stairs and steps, initial encounter; S82.432A Displaced oblique fracture of shaft of left fibula, initial encounter for closed fracture; Z79.52 Long term (current) use of systemic steroids; Y93.89 Activity, other specified; Y92.009 Unspecified place in unspecified non-institutional (private) residence as the place of occurrence of the external cause
CPT/HCPCS: 36415; 71045-TC; 73590-TC; 80048-TC; 80061-TC; 83735-TC; 84100-TC; 84439-TC; 84443-TC; 85025-TC; 85730-TC; 86850-TC; 87081-TC; 93307-TC; 97110-TC; 97116-TC; 97530-TC; A4223; A6209; C1713; G0378; J0690; J1100; J1170; J1720; J1885; J2270; J2405; J2470; J2704; J2919; J3010; J3370; J3480; J3490; J7030; J7042; J7050; J7060; J7120; J7512